=== PATIENT | female | born 1960 | race Caucasian/White ===

== ENCOUNTER 2018-07-31 10:54 | Day surgery (SDC) | payer MEDICAID ==
[~2018-07-31] VITALS: Ht 160 cm; Wt 68.9 kg
[2018-07-31] MEDS ORDERED: fentaNYL 0.05 MG/ML VIAL ONE (11:52)
[2018-07-31] MEDS ORDERED: LIDOCAINE 2% 100 MG/5 ML UJET TP ONE (11:52)
== END 2018-07-31 13:00 | disposition home or self-care (01) ==
LOC: MDS 10:54 → MMU 10:54 → MDS 13:00
PROVIDERS: ATTEND Internal Medicine Gastroenterology
DX: Z12.11 Encounter for screening for malignant neoplasm of colon (principal); K57.30 Diverticulosis of large intestine without perforation or abscess without bleeding; E66.3 Overweight; Z68.26 Body mass index [BMI] 26.0-26.9, adult; Z98.890 Other specified postprocedural states; Z87.891 Personal history of nicotine dependence
CPT/HCPCS: 45378; J3010